=== PATIENT | female | born 1955 | race Caucasian/White ===

== ENCOUNTER 2017-01-30 08:18 | Emergency (ER) | payer OTHER ==
[~2017-01-30] VITALS: Ht 157.5 cm; Wt 73.5 kg
[~2017-01-30 08:18] MED LIST: BACTRIM DS 8001 TAB PO; HYDROMORPHONE HC2 M1 PO; LORAZEPAM0.5 M1 PO; SERTRALINE HCL50 MG PO; TRAMADOL HCL50 M1 PO
--- NOTE | 2017-01-30 08:33 | ED GI/GU/ABDOMINAL COMPLAINT ---
History of Present Illness General Chief Complaint: Abdominal Pain/Flank Pain Stated Complaint: ABD PAIN Source: patient, old records Exam Limitations: no limitations Allergies Coded Allergies: nitrofurantoin (From MACROBID) (Severe, HIGH FEVER BLOOD PRESSURE DROPPED ) aspirin (CROHNS 02/24/16) Reconcile Medications Ciprofloxacin HCl (Cipro) 500 MG TABLET 1 TAB PO BID UTI Lorazepam 0.5 MG TABLET 1 TAB PO TID ANXIETY (Reported) Ondansetron (Zofran Odt) 4 MG TAB.RAPDIS 1 TAB SL TID PRN NAUSEA Oxycodone HCl/Acetaminophen (Percocet 5-325 MG Tablet) 5 MG-325 MG TABLET 1 TAB PO TID PRN PAIN Prednisone 50 MG TABLET 1 DP PO DAILY crohns 5 tabs po x 3 days then 4tabs x3 days, 3 tabs po x3 days, 2 tabs po x 3 days, 1 tab PO x 3 days Sertraline HCl 50 MG TABLET 1.5 TAB PO DAILY MENTAL HEALTH (Reported) Tramadol HCl 50 MG TABLET 1 TAB PO 4 TIMES/DAY PAIN (Reported) not needed from surgical standpoint. Patient may follow up with original provider if needed Triage Note: PT BIBA FROM HOME AFTER EXPERIENCING DIFFUSE ABD PAIN SINCE 0100. PT HAS HX OF CHRONES DISEASE AND HAS NOT BEEN ON MEDS IN ALONG TIME FOR IT. PT STATES SHE HAD LOOSE STOOL LAST EVENING. PT WAS GIVEN 50MG OF FENTANYL IV BY EMS. PT FEELS LIKE SHE HAS A CURRENT UTI AT THIS TIME. Triage Nurses Notes Reviewed? yes LMP (ages 10-50): unknown ? N Is pt currently ? No Onset: Abrupt Duration: hour(s): (7), constant, continues in ED Timing: recent history Quality/Severity: cramping, moderate, sharpness Severity Numbers: 8 Location: epigastric, periumbilical Radiation: no radiation Activities at Onset: sleep Prior Abdominal Problems: similar symptoms Past Sexual History: Unobtainable at this time No Modifying Factors: none Modifying Factors: Worsens With: movement, palpation. Associated Symptoms: abdominal pain, diarrhea, dysuria, urinary frequency HPI: 61-year-old female past medical history of Crohn disease, chronic UTIs, vaginal cancer, brought in by a balance for evaluation of abdominal pain. Patient states that symptoms started around 1:00 this morning and have been getting worse. Pain is located in the periumbilical area and epigastric area. It is worse with movement or touching the area. Pain is similar to previous abdominal pain patient is having the past. No nausea vomiting or diarrhea. Last bowel movement was yesterday. She does report some bright red blood on the toilet paper however has a history of hemorrhoids and states this is been going on for a while. No melena. No fevers. She took tramadol at home without any improvement. No chest pain shortness of breath. She is also concerned about a urinary tract infection she says for the past month she has had frequency urgency dysuria. She has a history of frequent UTIs. No vaginal discharge or bleeding. No back pain. (Tony Moreau) Vital Signs & Intake/Output Vital Signs & Intake/Output Vital Signs Date Time Temp Pulse Resp B/P B/P Pulse O2 O2 Flow FiO2 Mean Ox Delivery Rate 01/30 1411 98.0 94 16 135/70 92 Room Air 01/30 1300 99.0 80 20 142/80 93 Room Air 01/30 1217 99.2 78 16 164/77 94 Room Air 01/30 1122 97.2 85 18 146/72 94 Room Air 01/30 1050 97.0 01/30 1026 97.0 80 20 113/69 98 Room Air 01/30 0921 96.0 84 20 153/86 94 Room Air 01/30 0831 96 01/30 0824 96.2 85 20 177/87 100 Room Air (Marichuy NAVARRETE,Juan Carlos Barreto) Past History Travel History Traveled to [place] past 21 day No Medical History Any Pertinent Medical History? 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 No (Tony Moreau) Review of Systems Review of Systems Constitutional: Reports: no symptoms. EENTM: Reports: no symptoms. Respiratory: Reports: no symptoms. Cardiovascular: Reports: no symptoms. GI: Reports: see HPI, abdominal pain. Genitourinary: Reports: no symptoms. Musculoskeletal: Reports: no symptoms. Skin: Reports: no symptoms. Neurological/Psychological: Reports: no symptoms. Hematologic/Endocrine: Reports: no symptoms. Immunologic/Allergic: Reports: no symptoms. All Other Systems: Reviewed and Negative (Tony Moreau) Physical Exam Physical Exam General Appearance: well developed/nourished, no apparent distress, alert, awake Head: atraumatic, normal appearance Eyes: Bilateral: normal appearance, PERRL, EOMI. Ears, Nose, Throat, Mouth: hearing grossly normal, moist mucous membrane Neck: normal inspection, supple, full range of motion Respiratory: normal breath sounds, chest non-tender, no respiratory distress, lungs clear Cardiovascular: regular rate/rhythm, normal peripheral pulses Peripheral Pulses: 2+ radial (R), 2+ radial (L) Gastrointestinal: normal bowel sounds, soft, no organomegaly, tenderness ( EPIGASTIC, PERIUMBILICAL) Back: normal inspection, normal range of motion Extremities: normal range of motion Core Measures ACS in differential dx? No Sepsis Present: No Sepsis Focused Exam Completed? No (Tony Moreau) Progress Differential Diagnosis: appendicitis, biliary colic, bowel obstruction, cholecystitis, diverticulitis, inflamm bowel dis, pancreatitis, peptic ulcer, PUD/GERD, SBO, UTI/pyelo Diagnostic Imaging: Viewed by Me: CT Scan. Discussed w/RAD: CT Scan. Radiology Impression: PATIENT: ENRICO THOMASON PRESENT AGE : 61 PATIENT ACCOUNT NO: [id number] : 56 LOCATION: [facility] ORDERING PHYSICIAN: Tony GARCIA SERVICE DATE: 01/30/17 EXAM TYPE: CAT - CT ABD & PELVIS W IV CONTRAST EXAMINATION: CT ABDOMEN AND PELVIS WITH CONTRAST CLINICAL INFORMATION: Periumbilical pain. Evaluate for inflammatory process. COMPARISON: CT abdomen and pelvis most recent prior dated 02/24/2016 TECHNIQUE: Multidetector volumetric imaging was performed of the abdomen and pelvis following IV administration of 95 mL of Optiray 320 intravenous contrast. Sagittal and coronal reformatted images were obtained on the technologist's workstation. DLP: 631.83 mGy-cm FINDINGS: LUNG BASES: The visualized lung bases are unremarkable. LIVER, GALLBLADDER, AND BILIARY TREE: Stable minor prominence of the intrahepatic bile ducts. Status post cholecystectomy. Common bile duct is within normal limits. PANCREAS: Unremarkable. SPLEEN: Unremarkable. ADRENAL GLANDS: Unremarkable. KIDNEYS AND URETERS: The kidneys are normal in size, shape , and attenuation. No hydronephrosis, hydroureter, or calculi seen. No perinephric stranding. BLADDER: Incompletely distended urinary bladder with minor mucosal enhancement and bladder wall thickness. GASTROINTESTINAL TRACT: The loops including the distal ileal loops demonstrate mild distention, cause enhancement and small bowel fecal sign especially evident in the distal ileum. Terminal ileum is decompressed. Zone of transition between the distended fecalized and decompressed distal ileum is noted in the right lower quadrant ( series 602 image [id number]) with adjacent desmoplastic changes and mild wall thickness noted in the distal ileal loops. There is small amount of free fluid surrounding these abnormal loops. Similar appearance was also seen on the prior examination. However, there is greater distention noted on the prior examination. No gross evidence of appendicitis. There is no evidence of diverticulitis. Stomach appears grossly unremarkable. ABDOMINAL WALL: Small fat- containing umbilical hernia. LYMPH NODES: Normal. VASCULAR: Unremarkable. PELVIC VISCERA: Status post hysterectomy. No suspicious ovarian or adnexal abnormality. OSSEOUS STRUCTURES: Degenerative changes. No acute osseous abnormality IMPRESSION: 1. Partial small bowel obstruction with abnormal distention and fecalization of the ileal loops. Zone of transition noted in the right lower quadrant with adjacent desmoplastic changes. Mild wall thickness also evident in the distal ileal loops distal to the sonographic transition. Although differential possibility includes diffusion secondary to fibrous band, differential possibility also includes inflammatory bowel disease. Interloop fistulization cannot be entirely excluded given the inflammatory and desmoplastic changes tugging at multiple small bowel loops in the right lower quadrant. Clinical correlation is therefore recommended. 2. Small amount of free fluid noted again. 3. Mildly thick-walled urinary bladder with mild mucosal enhancement may represent cystitis. Clinical correlation is recommended. DICTATED BY: kOsana Hayes MD DATE/TIME DICTATED:01/30/171047 [employer] LEAD WORKER:MIRIAM DATE/TIME TRANSCRIBED:01/30/171047 CONFIDENTIAL, DO NOT COPY WITHOUT APPROPRIATE AUTHORIZATION. Initial ED EKG: normal sinus rhythm (Henrik GARCIA,Tony) Plan of Care: Orders Procedure Date/time Status Add-on Test (ER Only) 01/30 1102 Active CULTURE,URINE 01/30 103 Active URINALYSIS 01/30 08 Complete TROPONIN LEVEL 01/31 832 Complete LIPASE 01/30 08 Complete C-REACTIVE PROTEIN 01/31 832 Complete COMPREHENSIVE METABOLIC PANEL 01/31 832 Complete CBC WITHOUT DIFFERENTIAL 01/31 832 Complete EKG 01/31 832 Active Laboratory Tests 01/30/17 1031: Urinalysis MANY H, Urine Color YEL, Urine Clarity TURBD H, Urine pH 8.5 H, Ur Specific [place] 1.020, Urine Protein 30 H, Urine Ketones NEG, Urine Nitrite NEG, Urine Bilirubin NEG, Urine Urobilinogen 0.2, Ur Leukocyte Esterase LARGE H , Ur Microscopic SEDIMENT EXAMINED, Urine RBC 5-10 H, Urine WBC PACKD H, Ur Epithelial Cells FEW, Urine Bacteria FEW H, Urine Mucus RARE, Urine Hemoglobin SMALL H, Urine Glucose NEG 01/30/17 0845: Anion Gap 12, Estimated GFR > 60, BUN/Creatinine Ratio 20.0, Glucose 129 H, Calcium 9.6, Total Bilirubin 0.7, AST 20, ALT 30, Alkaline Phosphatase 79, Troponin I < 0.01, C-Reactive Prot, Quant 1.6 H, Total Protein 6.7, Albumin 4.0 , Globulin 2.7, Albumin/Globulin Ratio 1.5, Lipase 79, CBC w Diff NO MAN DIFF REQ, RBC 4.95, MCV 80.6 L, MCH 27.6, RDW 12.5, MPV 8.1, Gran % 83.2 H, Lymphocytes % 12.8 L, Monocytes % 3.3, Eosinophils % 0.7, Basophils % 0, Absolute Granulocytes 8.9 H, Absolute Lymphocytes 1.4, Absolute Monocytes 0.3, Absolute Eosinophils 0.1, Absolute Basophils 0, PUBS MCHC 34.3 Microbiology 01/30 1031 URINE ROUT: Urine Culture - RECD Patient seen and evaluated. She has diffuse abdominal pain worsen the epigastric appearing umbilical area. Patient has a history of chronic abdominal pain related to Crohn's disease and feel that this is similar. She is currently not taking any medications for her Crohn's. She is afebrile nontoxic-appearing. We'll check basic blood work urinalysis and a contrast CT scan. Patient was medicated with IV morphine. CT scan shows a partial small bowel junction. Patient was evaluated by Dr. Hanna general surgeon. He recommends given the patient another liter of fluid ensuring that she can tolerate clears and the patient will be discharged home with instructions to follow up with GI. Patient be given a prescription for Percocet to use for pain control. Zofran for nausea. Clear liquid diet. Discussed return precautions in detail. Patient is nontoxic-appearing and agrees the plan. Patient will be given Cipro for UTI. Advised rest and fluids follow-up with GI doctor as soon as possible. Patient is nontoxic-appearing agrees the plan. (Henrik GARCIA,Tony) (Marichuy NAVARRETE,Juan Carlos Barreto) Departure Departure Disposition: HOME OR SELF CARE Condition: Stable Clinical Impression Primary Impression: Abdominal pain Qualifiers: Abdominal location: periumbilical Qualified Code: R10.33 - Periumbilical pain Secondary Impressions: UTI (urinary tract infection) Qualifiers: Urinary tract infection type: acute cystitis Hematuria presence: without hematuria Qualified Code: N30.00 - Acute cystitis without hematuria Referrals: Britney NAVARRETE,Nick Bermudez (PCP/Family) Additional Instructions: Take antibiotics and steriods as directed for the full course. Zofran for nausea Percocet for pain. Make a follow-up APPT with a GI doctor as soon as possible to get medication for Crohn's disease. Monitor symptoms return to the emergency department with worsening pain, vomiting, fevers or any other concerns. Please go over all results of today's visit with your primary care doctor. Contact your primary care doctor to let them know you were here in the emergency room. There may be nonspecific findings which may not be related to your visit today here in the emergency room but may require further evaluation and chronic monitoring by your primary care doctor. If you had a laceration today the chance of foreign body always remains. You should follow-up with your primary care doctor for recheck in 3-5 days for a wound check. If you had an x-ray done there is a chance that a fracture could have been missed on initial read and you should follow-up with your primary care doctor for repeat x-rays if symptoms persist. If your blood pressure was elevated here in the emergency room please have rechecked by her primary care doctor within the next 48 hours by your primary care doctor. If you were prescribed a narcotic here in the emergency room or any type of controlled substances you're not allowed to drive while taking this medication or operate any type of heavy machinery. Narcotics can make you feel lightheaded dizziness nausea and can cause constipation. You may need to warp picker a stool softener. Thank you for choosing [facility] emergency room. Please return to the emergency room immediately if you have any other concerns worsening of symptoms. Departure Forms: Customer Survey General Discharge Information Prescriptions: Current Visit Scripts Oxycodone HCl/Acetaminophen (Percocet 5-325 MG Tablet) 1 TAB PO TID PRN PAIN #8 TAB Ondansetron (Zofran Odt) 1 TAB SL TID PRN NAUSEA #15 TAB Ciprofloxacin HCl (Cipro) 1 TAB PO BID #14 TAB Prednisone 1 DP PO DAILY #1 DP 5 tabs po x 3 days then 4tabs x3 days, 3 tabs po x3 days, 2 tabs po x 3 days, 1 tab PO x 3 days (Tony Moreau) PA/PHYSICAL THERAPY ASSISTANT Co-Sign Statement Statement: ED Attending supervision documentation- [] I saw and evaluated the patient. I have also reviewed all the pertinent lab results and diagnostic results. I agree with the findings and the plan of care as documented in the PA's/PHYSICAL THERAPY ASSISTANT's documentation. [X] I have reviewed the ED Record and agree with the PA's/PHYSICAL THERAPY ASSISTANT's documentation. [] Additions or exceptions (if any) to the PAs/PHYSICAL THERAPY ASSISTANT's note and plan are summarized below: [] (Marichuy NAVARRETE,Juan Carlos Barreto)
[2017-01-30 08:56] LABS: ABSOLUTE BASOPHIL COUNT 0 /CUMM (0.0-0.2); ABSOLUTE EOSINOPHIL COUNT 0.1 /CUMM (0.0-0.7); ABSOLUTE GRANULOCYTE CT 8.9 /CUMM (1.4-6.5); ABSOLUTE LYMPH COUNT 1.4 /CUMM (1.2-3.4); ABSOLUTE MONOCYTE COUNT 0.3 /CUMM (0.10-0.60); BASOPHIL % 0 % (0.0-2.0); EOSINOPHIL % 0.7 % (0-5); HEMATOCRIT 39.9 % (37-47); MEAN CORPUSCULAR HGB 27.6 PG (27.0-31.0); MEAN CORPUSCULAR HGB CONC 34.3 G/DL (33.0-37.0); MEAN CORPUSCULAR VOLUME 80.6 FL (81.0-99.0); MEAN PLATELET VOLUME 8.1 FL (7.4-10.4); RBC DISTRIBUTION WIDTH 12.5 % (11.5-14.5); RED BLOOD CELL CT 4.95 /CUMM (4.20-5.40); WHITE BLOOD CELL COUNT 10.7 /CUMM (4.8-10.8)
[2017-01-30 09:17] LABS: GRANULOCYTE % 83.2 % (42.2-75.2); PLATELET COUNT 322 /CUMM (130-400)
--- NOTE | 2017-01-30 11:11 | CT SCAN REPORT ---
EXAMINATION: CT ABDOMEN AND PELVIS WITH CONTRAST CLINICAL INFORMATION: Periumbilical pain. Evaluate for inflammatory process. COMPARISON: CT abdomen and pelvis most recent prior dated 02/24/2016 TECHNIQUE: Multidetector volumetric imaging was performed of the abdomen and pelvis following IV administration of 95 mL of Optiray 320 intravenous contrast. Sagittal and coronal reformatted images were obtained on the technologist's workstation. DLP: 631.83 mGy-cm FINDINGS: LUNG BASES: The visualized lung bases are unremarkable. LIVER, GALLBLADDER, AND BILIARY TREE: Stable minor prominence of the intrahepatic bile ducts. Status post cholecystectomy. Common bile duct is within normal limits. PANCREAS: Unremarkable. SPLEEN: Unremarkable. ADRENAL GLANDS: Unremarkable. KIDNEYS AND URETERS: The kidneys are normal in size, shape, and attenuation. No hydronephrosis, hydroureter, or calculi seen. No perinephric stranding. BLADDER: Incompletely distended urinary bladder with minor mucosal enhancement and bladder wall thickness. GASTROINTESTINAL TRACT: The loops including the distal ileal loops demonstrate mild distention, cause enhancement and small bowel fecal sign especially evident in the distal ileum. Terminal ileum is decompressed. Zone of transition between the distended fecalized and decompressed distal ileum is noted in the right lower quadrant (series 602 image [id number]) with adjacent desmoplastic changes and mild wall thickness noted in the distal ileal loops. There is small amount of free fluid surrounding these abnormal loops. Similar appearance was also seen on the prior examination. However, there is greater distention noted on the prior examination. No gross evidence of appendicitis. There is no evidence of diverticulitis. Stomach appears grossly unremarkable. ABDOMINAL WALL: Small fat-containing umbilical hernia. LYMPH NODES: Normal. VASCULAR: Unremarkable. PELVIC VISCERA: Status post hysterectomy. No suspicious ovarian or adnexal abnormality. OSSEOUS STRUCTURES: Degenerative changes. No acute osseous abnormality IMPRESSION: 1. Partial small bowel obstruction with abnormal distention and fecalization of the ileal loops. Zone of transition noted in the right lower quadrant with adjacent desmoplastic changes. Mild wall thickness also evident in the distal ileal loops distal to the sonographic transition. Although differential possibility includes diffusion secondary to fibrous band, differential possibility also includes inflammatory bowel disease. Interloop fistulization cannot be entirely excluded given the inflammatory and desmoplastic changes tugging at multiple small bowel loops in the right lower quadrant. Clinical correlation is therefore recommended. 2. Small amount of free fluid noted again. 3. Mildly thick-walled urinary bladder with mild mucosal enhancement may represent cystitis. Clinical correlation is recommended.
[2017-01-30 14:11] VITALS: BP 135/70
[2017-01-30] MEDS ORDERED: CIPRO500 M1 PO (15:21)
[2017-01-30] MEDS ORDERED: PERCOCET 5-3251 EACH PO (15:21)
[2017-01-30] MEDS ORDERED: ZOFRAN ODT4 M1 SL (15:21)
[2017-01-30] MEDS ORDERED: PREDNISONE50 M1 PO (15:27)
--- NOTE | 2017-01-30 16:09 | Cons- General Surgery ---
General Information and HPI Consulting Request Date of Consult: 01/30/17 Requested By: Tony GARCIA Reason for Consult: Intestinal obstruction History of Present Illness: Patient's known to me from previous encounters for partial intestinal obstruction. She carries a diagnosis of Crohn's disease, diagnosed at age 23, but is not currently treated for it. She also has a past medical history significant for vaginal cancer status post pelvic radiation. Over the past 2 years she has been admitted to the hospital on multiple occasions for partial intestinal obstruction. All obstructions have resolved spontaneously without need for surgical intervention. She has no significant abdominal surgery to suggest adhesive disease. Currently patient complains of periumbilical abdominal pain. She denies nausea or vomiting. Her last bowel movement was yesterday. She states the pain began in the middle of night, proximally 1 AM. It awakened her from sleep and did not resolve. She came to the emergency room for further evaluation. Allergies/Medications Allergies: Coded Allergies: nitrofurantoin (From MACROBID) (Severe, HIGH FEVER BLOOD PRESSURE DROPPED ) aspirin (CROHNS 02/24/16) Home Med List: Ciprofloxacin HCl (Cipro) 500 MG TABLET 1 TAB PO BID UTI Lorazepam 0.5 MG TABLET 1 TAB PO TID ANXIETY (Reported) Ondansetron (Zofran Odt) 4 MG TAB.RAPDIS 1 TAB SL TID PRN NAUSEA Oxycodone HCl/Acetaminophen (Percocet 5-325 MG Tablet) 5 MG-325 MG TABLET 1 TAB PO TID PRN PAIN Prednisone 50 MG TABLET 1 DP PO DAILY crohns 5 tabs po x 3 days then 4tabs x3 days, 3 tabs po x3 days, 2 tabs po x 3 days, 1 tab PO x 3 days Sertraline HCl 50 MG TABLET 1.5 TAB PO DAILY MENTAL HEALTH (Reported) Tramadol HCl 50 MG TABLET 1 TAB PO 4 TIMES/DAY PAIN (Reported) not needed from surgical standpoint. Patient may follow up with original provider if needed Past History Medical History Neurological: NONE EENT: NONE Cardiovascular: NONE Respiratory: NONE Gastrointestinal: CHRON'S DISEASE Hepatic: NONE Renal: CHRONIC UTI'S Musculoskeletal: NONE Psychiatric: NONE Endocrine: NONE Blood Disorders: NONE Cancer(s): VAGINAL CANCER LOBBY CONCIERGE/Reproductive: NONE Surgical History Pertinent Surgical History: cholecystectomy, hernia repair-umbilical, hysterectomy (vaginal), MULTIPLE VAGINAL SURGERIES Psychosocial History Who Do You Live With? spouse Services at Home: None ETOH Use: denies use Illicit Drug Use: denies illicit drug use Functional Ability ADLs Independent: dressing, eating, toileting, bathing. Ambulation: independent IADLs Independent: shopping, housework, finances, food prep, telephone, transportation , medication admin. Review of Systems Review of Systems: She denies chest pain dyspnea on exertion. She has no chronic joint pain. Abdominal pain per HPI otherwise 12 points negative Exam & Diagnostic Data Vital Signs and I&O Vital Signs Date Time Temp Pulse Resp B/P B/P Pulse O2 O2 Flow FiO2 Mean Ox Delivery Rate 01/30 1411 98.0 94 16 135/70 92 Room Air 01/30 1300 99.0 80 20 142/80 93 Room Air 01/30 1217 99.2 78 16 164/77 94 Room Air 01/30 1122 97.2 85 18 146/72 94 Room Air 01/30 1050 97.0 01/30 1026 97.0 80 20 113/69 98 Room Air 01/30 0921 96.0 84 20 153/86 94 Room Air 01/30 0831 96 01/30 0824 96.2 85 20 177/87 100 Room Air Intake & Output 01/30 1600 01/30 0800 01/30 0000 01/29 1600 01/29 0800 01/29 0000 Intake Total 1100 Output Total Balance 1100 Intake, IV 1100 Patient 162 lb Weight Weight Reported by Patient Measurement Method Physical Exam: Gen.: She looks well looks her stated age normal body habitus HEENT: Anicteric PERRL EOMI slightly dry mucous membranes Neck: Supple no adenopathy no thyromegaly no JVD Chest: Nontender normal excursion normal effort Abdomen: Flat soft mild tenderness right lower quadrant without guarding. No mass. No tympany no hernia Extremities no cyanosis clubbing or edema Last 24 Hours of Labs: Laboratory Tests 01/30 01/30 1031 0845 Chemistry Sodium (137 - 145 mmol/L) 139 Potassium (3.5 - 5.1 mmol/L) 4.0 Chloride (98 - 107 mmol/L) 105 Carbon Dioxide (22 - 30 mmol/L) 22 Anion Gap (5 - 16) 12 BUN (7 - 17 mg/dL) 14 Creatinine (0.5 - 1.0 mg/dL) 0.7 Estimated GFR (>60 ml/min) > 60 BUN/Creatinine Ratio (7 - 25 %) 20.0 Glucose (65 - 99 mg/dL) 129 H Calcium (8.4 - 10.2 mg/dL) 9.6 Total Bilirubin (0.2 - 1.3 mg/dL) 0.7 AST (14 - 36 U/L) 20 ALT (9 - 52 U/L) 30 Alkaline Phosphatase (<127 U/L) 79 Troponin I (< 0.11 ng/ml) < 0.01 C-Reactive Prot, Quant (<1.0 mg/dL) 1.6 H Total Protein (6.3 - 8.2 g/dL) 6.7 Albumin (3.5 - 5.0 g/dL) 4.0 Globulin (1.9 - 4.2 gm/dL) 2.7 Albumin/Globulin Ratio (1.1 - 2.2 %) 1.5 Lipase (23 - 300 U/L) 79 Hematology CBC w Diff NO MAN DIFF REQ WBC (4.8 - 10.8 /CUMM) 10.7 RBC (4.20 - 5.40 /CUMM) 4.95 Hgb (12.0 - 16.0 G/DL) 13.7 Hct (37 - 47 %) 39.9 MCV (81.0 - 99.0 FL) 80.6 L MCH (27.0 - 31.0 PG) 27.6 RDW (11.5 - 14.5 %) 12.5 Plt Count (130 - 400 /CUMM) 322 MPV (7.4 - 10.4 FL) 8.1 Gran % (42.2 - 75.2 %) 83.2 H Lymphocytes % (20.5 - 51.1 %) 12.8 L Monocytes % (1.7 - 9.3 %) 3.3 Eosinophils % (0 - 5 %) 0.7 Basophils % (0.0 - 2.0 %) 0 Absolute Granulocytes (1.4 - 6.5 /CUMM) 8.9 H Absolute Lymphocytes (1.2 - 3.4 /CUMM) 1.4 Absolute Monocytes (0.10 - 0.60 /CUMM) 0.3 Absolute Eosinophils (0.0 - 0.7 /CUMM) 0.1 Absolute Basophils (0.0 - 0.2 /CUMM) 0 PUBS MCHC (33.0 - 37.0 G/DL) 34.3 Urines Urinalysis MANY H Urine Color (YEL,AMB,STR) YEL Urine Clarity (CLEAR) TURBD H Urine pH (5.0 - 8.0) 8.5 H Ur Specific [place] (1.001 - 1.035) 1.020 Urine Protein (NEG,<30 MG/DL) 30 H Urine Ketones (NEG) NEG Urine Nitrite (NEG) NEG Urine Bilirubin (NEG) NEG Urine Urobilinogen (0.1 - 1.0 EU/dl) 0.2 Ur Leukocyte Esterase (NEG) LARGE H Ur Microscopic SEDIMENT EXAMINED Urine RBC (0 - 5 /HPF) 5-10 H Urine WBC (0 - 2 /HPF) PACKD H Ur Epithelial Cells (NONE,FEW) FEW Urine Bacteria (NEG/NONE) FEW H Urine Mucus (FEW,NONE) RARE Urine Hemoglobin (NEG) SMALL H Urine Glucose (N MG/DL) NEG Imaging Results: CT scan of the abdomen pelvis were personally reviewed. Findings show mildly dilated distal small bowel loops without abrupt transition point. There is scant free fluid. Assessment/Plan Assessment/Plan Recurrent partial intestinal obstruction likely related to Crohn's disease and/ or small bowel irradiation related to her vaginal cancer. There is no prior abdominal surgery to suggest adhesive disease. Given the rapid resolution of her prior bowel obstructions as well as a minimal findings on her current evaluation, I do not feel that she needs to be admitted to surgical service. She is being evaluated by her premises technician. This can be performed as an outpatient. Patient is reluctant to come in the hospital. I feel that if she can tolerate liquids without worsening of her pain , she can be safely discharged home for outpatient follow-up. Consult Acknowledgment - Thank you for your consult request.
== END 2017-01-30 16:02 ==
LOC: ERH 08:18
PROVIDERS: Physician Assistant Medical
DX: N39.0 Urinary tract infection, site not specified (principal)
CPT/HCPCS: 74177; 81001; 87086; 93005; 93010; 96361; 96374; 96375; J0131